=== PATIENT | female | born 1950 | race Caucasian/White ===

== ENCOUNTER → 2019-07-31 | Outpatient (CLI) | payer MEDICARE, BC ==
--- NOTE | 2019-07-31 16:59 | RAD ---
CERVICAL SPINE 5V History: Neck pain Technique: 5 views cervical spine. Comparison: None. Findings: Normal alignment. No fracture. Prevertebral soft tissues unremarkable. Mild degenerative disc changes most prominent C5-C6. Multilevel facet arthropathy. Mild bony neural foraminal narrowing C5-C6 and C6-C7. Normal alignment C1 on C2. Impression: 1. Multilevel cervical spondylosis. Electronically signed by: Eris Londono DO (07/31/2019 4:56 PM) [facility]
== END | disposition home or self-care (01) ==
LOC: DXRAD 11:53
PROVIDERS: ATTEND Physician Assistant Medical
DX: M48.02 Spinal stenosis, cervical region (principal); M46.82 Other specified inflammatory spondylopathies, cervical region; M47.812 Spondylosis without myelopathy or radiculopathy, cervical region
CPT/HCPCS: 72050